=== PATIENT | male | born 1995 | race African-American/Black ===

== ENCOUNTER 2023-06-14 13:27 | Emergency (ER) | payer SELFPAY ==
[~2023-06-14] VITALS: Ht 180.3 cm; Wt 65.0 kg
[2023-06-14 13:33] VITALS: O2SAT 99
[2023-06-14 14:05] VITALS: BP 128/73; PULSE 80; RESP 16; TEMP 98.4
== END 2023-06-14 14:07 | disposition home or self-care (01) ==
LOC: ER 13:27
DX: S70.02XA Contusion of left hip, initial encounter (principal); V49.59XA Passenger injured in collision with other motor vehicles in traffic accident, initial encounter; Y93.89 Activity, other specified; Y92.89 Other specified places as the place of occurrence of the external cause; Y99.8 Other external cause status
CPT/HCPCS: 99283